=== PATIENT | male | born 1965 | race Caucasian/White ===

== ENCOUNTER 2016-12-22 14:41 | Emergency (ER) | payer MEDICARE, MEDICAID ==
[~2016-12-22] VITALS: Ht 172.7 cm; Wt 123.0 kg
[~2016-12-22 14:41] MED LIST: BACL20TA PO; BISA-72 PO; BUPR150T88 PO; BUPR300T33 PO; CEPH500C2 PO; CLON-241 PO; CYAN10009 PO; DOCU-175 PO; DULO60CA46 PO; FENT50AM; FURO20TA4 PO; IBUP-1724 PO; LEVO75TA10 PO; LORA2TAB81 PO; METO25TA6 PO; OXYC1TAB72 PO; POLY119P3 PO; PRAV40TA46 PO; SENN1TAB79 PO; TAMS0.4C47 PO; [UNRECOGNIZED DRUG - CODE]; [UNRECOGNIZED DRUG - CODE]
[2016-12-22 14:44] VITALS: Ht 172.7 cm; Wt 123.0 kg
--- NOTE | 2016-12-22 14:44 | NUR ---
ROOM PATIENT AMBULATORY TO ROOM
--- OUTSIDE RECORDS SUMMARY | 2016-12-22 14:45 | XMS REPORT | Continuity of Care Document ---
Author Author [facility] Organization [facility] Address Unknown Phone Unavailable Care Team Providers Care Keyboarding Teacher Name Role Phone Unknown, Unknown Primary Care Physician Unavailable Source Comments Some departments are not documenting in the electronic medical record. If you do not see the information that you expected, contact Release of Information in the Health Information Management department at [phone] for further assistance in locating additional records.[facility] Active Allergies and Adverse Reactions Allergen Noted Date Severity Reactions Comments Doxycycline 11/18/2016 Low STOMACH UPSET Erythromycin 11/18/2016 Low STOMACH UPSET Flexeril 11/18/2016 Low ANXIETY Ketorolac 11/18/2016 Low STOMACH UPSET Oxazepam 11/18/2016 Low ANXIETY Seasonal Allergies 11/18/2016 Low ITCHING Ragweed,tree pollen,spring astudillo Current Medications Prescription Sig. Disp. Refills Start End Date Status Date LORazepam (ATIVAN) 2 mg Take 2 mg by mouth every Active tablet 6 hours as needed for Nausea, Vomiting or Other.... baclofen (LIORESAL) 20 mg Take 20 mg by mouth four Active tablet times daily. clonazePAM (KLONOPIN) 0.5 Take 0.5 mg by mouth Active mg tablet twice daily. DULOXETINE HCL (CYMBALTA Take 120 mg by mouth Active PO) daily. furosemide (LASIX) 20 mg Take 20 mg by mouth twice Active tablet daily. Takes 10mg oxyCODONE/acetaminophen Take 1 Tab by mouth every Active (PERCOCET; ENDOCET) 6 hours as needed for 10/325 mg tablet Pain levothyroxine (SYNTHROID) Take 75 mcg by mouth Active 75 mcg tablet daily 30 minutes before breakfast. METOPROLOL TARTRATE PO Take 12.5 mg by mouth Active twice daily. pravastatin (PRAVACHOL) Take 40 mg by mouth at Active 40 mg tablet bedtime daily. BUPROPION HCL (WELLBUTRIN Take 450 mg by mouth Active PO) daily. tamsulosin (FLOMAX) 0.4 Take 0.4 mg by mouth Active mg capsule daily. Do not crush, chew or open capsules. Take 30 minutes following the same meal each day. other medication 1 Dose. Pain Infusion Active pump intrathecal implant cyanocobalamin(+) Take 1,000 mcg by mouth Active (VITAMIN B-12) 100 mcg daily. tablet BISACODYL PO Take 10 mg by mouth Active daily. docusate (COLACE) 100 mg Take 100 mg by mouth Active capsule twice daily. 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
--- OUTSIDE RECORDS SUMMARY | 2016-12-22 14:46 | XMS REPORT | Continuity of Care Document ---
Author Author [facility] Organization [facility] Address Unknown Phone Unavailable Allergies Active Description Code Type Severity Reaction Onset Reported/Identified Relationship to Patient Clinical Status Yes doxycycline NKMA N/A N/A 01/18/2014 Yes erythromycin NKMA N/A N/A 01/18/2014 Yes Ketorolac Tromethamine NKMA N/A N/A 02/19/2014 Yes cyclobenzaprine NKMA N/A [id number] 06/19/2014 Yes oxazepam NKMA N/A [id number] 06/19/2014 Yes Toradol NKMA N/A anxiety 12/06/2014 Medications Problems Procedures Results Test Result Range CBC With Platelet and Differential - 02/21/16 14:40 Absolute Basophils 0.05 10*3 0.00-0.20 Absolute Eosinophils 0.28 10*3 0.00-0.50 Absolute Lymphocytes 2.66 10*3 0.80-3.30 Absolute Monocytes 0.80 10*3 0.30-1.00 Absolute Neutrophils 2.56 10*3 1.90-7.00 Basophils 1 % 0-2 Eosinophils 4 % 0-4 HCT 42.2 % 42.0-52.0 HGB 13.4 g/dL 14.0-18.0 Immature Granulocytes 0.0 % 0.0-1.0 Lymphocytes 42 % 20-46 MCH 31.0 pg 27.0-32.0 MCHC 31.8 g/dL 32.0-36.0 MCV 97.7 fL 82.0-99.0 Monocytes 13 % 4-11 MPV 11.1 fL 8.8-14.8 Neutrophils 40 % 51-75 Platelet Count 214 K/uL 150-400 RBC 4.32 10*6/uL 4.60-6.20 RDW 14.7 % 11.5-14.5 WBC 6.4 K/uL 4.8-10.8 Comprehensive Metabolic Panel (CMP) - 02/21/16 14:40 Albumin 4.5 g/dL 3.5-5.0 Alkaline Phosphatase 71 U/L 40-150 ALT (SGPT) 34 U/L 0-55 Anion Gap 8 NA 3-20 AST (SGOT) 22 U/L 5-34 Bilirubin Total 0.7 mg/dL 0.2-1.2 BUN 17 mg/dL 8-26 Calcium 9.4 mg/dL 8.9-10.5 Chloride 108 mEq/L 99-111 CO2 27 mEq/L 23-31 Creatinine 1.10 mg/dL 0.72-1.25 Globulin 2.1 g/dL 1.8-4.0 Glucose 81 mg/dL 70-99 Potassium 4.1 mEq/L 3.5-5.2 Protein 6.6 g/dL 6.4-8.3 Sodium 143 mEq/L 135-144 eGFR - 02/21/16 14:40 eGFR >60 mL/min >60 Urinalysis with reflex microscopic - 02/21/16 14:53 Appearance Cloudy NA Bilirubin Negative NA Negative Blood Trace NA Negative Color Yellow NA Glucose, Urine Negative Negative Ketones Negative Negative Leukocyte Esterase Negative NA Negative Nitrites Negative NA Negative pH 6.5 NA 5.0-8.0 Protein Pos 2+ Negative Specific Calhoun 1.020 NA 1.003-1.030 UA Collection type Clean Catch NA Urobilinogen 0.2 mg/dL <1.0 Urine Microscopic - 02/21/16 14:53 Bacteria Rare NA Epithelial Cells 0 /HPF RBC, Urine 5 /HPF 0-4 Urine Mucus Present NA WBC, Urine >50 /HPF 0-4 CBC With Platelet No Differential - 03/29/16 06:54 HCT 39.1 % 42.0-52.0 HGB 12.1 g/dL 14.0-18.0 MCH 31.1 pg 27.0-32.0 MCHC 30.9 g/dL 32.0-36.0 MCV 100.5 fL 82.0-99.0 MPV 10.9 fL 9.4-12.3 Platelet Count 176 K/uL 150-400 RBC 3.89 10*6/uL 4.60-6.20 RDW 14.5 % 11.5-14.5 WBC 8.3 K/uL 4.8-10.8 Basic Metabolic Panel (BMP) - 03/29/16 06:54 Anion Gap 6 NA 3-20 BUN 6 mg/dL 4-20 Calcium 8.5 mg/dL 8.6-10.0 Chloride 109 mEq/L 99-109 CO2 26 mEq/L 22-32 Creatinine 0.99 mg/dL 0.64-1.27 Glucose 109 mg/dL 70-100 Potassium 3.5 mEq/L 3.6-5.1 Sodium 141 mEq/L 136-144 eGFR - 03/29/16 06:54 eGFR >60 NA >60 CBC With Platelet No Differential - 03/30/16 06:36 HCT 37.0 % 42.0-52.0 HGB 11.8 g/dL 14.0-18.0 MCH 31.3 pg 27.0-32.0 MCHC 31.9 g/dL 32.0-36.0 MCV 98.1 fL 82.0-99.0 MPV 11.2 fL 9.4-12.3 Platelet Count 237 K/uL 150-400 RBC 3.77 10*6/uL 4.60-6.20 RDW 14.2 % 11.5-14.5 WBC 6.9 K/uL 4.8-10.8 Comprehensive Metabolic Panel (CMP) - 03/30/16 06:36 Albumin 3.2 g/dL 3.5-4.8 Alkaline Phosphatase 51 U/L 26-104 ALT (SGPT) 11 U/L 17-63 Anion Gap 7 NA 3-20 AST (SGOT) 17 U/L 15-41 Bilirubin Total 0.9 mg/dL 0.2-1.2 BUN 11 mg/dL 4-20 Calcium 8.7 mg/dL 8.6-10.0 Chloride 109 mEq/L 99-109 CO2 27 mEq/L 22-32 Creatinine 1.22 mg/dL 0.64-1.27 Globulin 2.9 g/dL 1.9-4.3 Glucose 96 mg/dL 70-100 Potassium 3.6 mEq/L 3.6-5.1 Protein 6.1 g/dL 6.1-7.9 Sodium 143 mEq/L 136-144 eGFR - 03/30/16 06:36 eGFR >60 NA >60 CBC With Platelet No Differential - 03/31/16 05:10 HCT 36.0 % 42.0-52.0 HGB 11.6 g/dL 14.0-18.0 MCH 31.6 pg 27.0-32.0 MCHC 32.2 g/dL 32.0-36.0 MCV 98.1 fL 82.0-99.0 MPV 10.4 fL 9.4-12.3 Platelet Count 200 K/uL 150-400 RBC 3.67 10*6/uL 4.60-6.20 RDW 14.1 % 11.5-14.5 WBC 5.5 K/uL 4.8-10.8 Comprehensive Metabolic Panel (CMP) - 03/31/16 05:10 Albumin 3.0 g/dL 3.5-4.8 Alkaline Phosphatase 49 U/L 26-104 ALT (SGPT) 14 U/L 17-63 Anion Gap 6 NA 3-20 AST (SGOT) 19 U/L 15-41 Bilirubin Total 1.0 mg/dL 0.2-1.2 BUN 13 mg/dL 4-20 Calcium 8.9 mg/dL 8.6-10.0 Chloride 109 mEq/L 99-109 CO2 28 mEq/L 22-32 Creatinine 1.17 mg/dL 0.64-1.27 Globulin 2.6 g/dL 1.9-4.3 Glucose 106 mg/dL 70-100 Potassium 4.1 mEq/L 3.6-5.1 Protein 5.6 g/dL 6.1-7.9 Sodium 143 mEq/L 136-144 eGFR - 03/31/16 05:10 eGFR >60 NA >60 Creatinine - 04/24/16 14:25 Creatinine 1.16 mg/dL 0.72-1.25 eGFR - 04/24/16 14:25 eGFR >60 mL/min >60 PSA - 04/24/16 14:25 PSA 0.7 ng/mL 0.0-3.5 Encounters ACCT No. Visit Date/Time Discharge Status Pt. Type Provider Facility Loc./Unit Complaint [id number] 12/16/2013 20:30:00 12/16/2013 23 :59:59 [facility] Outpatient [id number] 11/29/2013 10:09:00 11/29/2013 23 :59:59 CLS Outpatient
--- OUTSIDE RECORDS SUMMARY | 2016-12-22 14:48 | XMS REPORT | Continuity of Care Document ---
Author Author [facility] Organization [facility] Address Unknown Phone Unavailable Care Team Providers Care It Programmer Name Role Phone TORRES NIÑO DO Primary Care Physician [phone] Insurance Providers Guarantor AllyErwin crandall [employer] Address [address] [place] [address] Email [email or web address] Payer Medicaid Policy Number [id number] Subscriber's Name Erwin Canales Relationship 18 Self Effective Date 16 Expiration Date 16 Payer Medicarehumana Gold Hmo Policy Number [id number] Subscriber's Name Erwin Canales Relationship 18 Self Advance Directives Directive Response Recorded Date/Time Advanced Directives Type None 11/29/16 11:32am Chief Complaint and Reason for Visit Chief Complaint Post-Surgical Problem Reason for Visit Encounter for postoperative wound check Problems Active Problems Medical Problem Onset Date Status Acute kidney injury Unknown Resolved Anxiety Unknown Chronic Chronic back pain Unknown Chronic Depression Unknown Chronic Encounter for postoperative wound check Unknown Acute Essential tremor Unknown Chronic Fibromyalgia Unknown Chronic Hypercholesteremia Unknown Chronic Hyperosmolality and hypernatremia Unknown Resolved Hypokalemia Unknown Acute Leukocytosis Unknown Resolved Obesity, Class III, BMI 40-49.9 (morbid obesity) Unknown Chronic Presence of implanted infusion pump Unknown Chronic Small bowel obstruction Unknown Resolved Past Problems Medical Problem Onset Date Postoperative seroma Unknown Medications Current Home Medications Medication Dose Units Route Directions Days Qty Instructions Start Date Baclofen 20 Mg Tablet 20 Mg Oral Four Times Daily 08/18/15 Bisacodyl (Dulcolax) 5 Mg Tablet. 5-10 Mg Oral Daily for Stool Softening 10/02/16 Bupivacaine Hcl/0.9 % Nacl/Pf (Bupivacaine 0.25%-0.9% Nacl) 2,500 Mcg/1 Ml Plast..bag PAIN INFUSION PUMP 03/17/16 Bupropion Hcl (Wellbutrin Xl) 150 Mg Tab.sr.24h 150 Mg Oral Every Morning 04/14/09 Bupropion Hcl (Wellbutrin Xl) 300 Mg Tab.sr.24h 300 Mg Oral Every Morning 04/14/09 Cephalexin 500 Mg Capsule 500 Mg Oral Four Times Daily 11/23/16 Clonazepam 1 Mg Tablet 0.5 Mg Oral Three Times A Day 04/14/09 Clonidine Hcl/Pf (Clonidine 1,000 Mcg/10 Ml Vial) 1,000 Mcg/10 Ml Vial PAIN INFUSION PUMP 08/18/15 Cyanocobalamin (Vitamin B-12) (Vitamin B-12) 1,000 Mcg Tablet 1,000 Mcg Oral Daily 10/09/15 Docusate Sodium 100 Mg Capsule 1-2 Cap Oral Daily 11/29/16 Duloxetine Hcl (Cymbalta) 60 Mg Capsule.dr 120 Mg Oral Daily 08/07 Fentanyl Citrate/Pf (Fentanyl 1,000 Mcg/20 Ml Ampul) 50 Mcg/1 Ml Ampul PAIN INFUSION PUMP 08/18/15 Furosemide 20 Mg Tablet 10 Mg Oral Twice A Day 10/01/16 Ibuprofen 200 Mg Tablet 400 Mg Oral Every 4 Hours as needed for Pain 11/23/16 Levothyroxine Sodium 75 Mcg Tablet 75 Mcg Oral Before Breakfast 10/09/15 Lorazepam (Ativan) 2 Mg Tablet 2 Mg Oral Three Times A Day as needed for Anxiety 03/17/16 Metoprolol Tartrate 25 Mg Tablet 12.5 Mg Oral Twice A Day Oxycodone Hcl/Acetaminophen (Percocet 10-325 Mg Tablet) 10-325 Tablet 1 Tab Oral Three Times A Day as needed for Pain 11/29/16 Polyethylene Glycol 3350 (Miralax) 119 Gm Powder 17 G Oral Daily 11/23/16 Pravastatin Sodium 40 Mg Tablet 40 Mg Oral Bedtime 04/23/11 Sennosides/Docusate Sodium (Senna S Tablet) 1 Each Tablet 2 Tab Oral Daily as needed for Constipation 03/17/16 Tamsulosin Hcl 0.4 Mg Cap.er.24h 0.4 Mg Oral Bedtime 10/01/16 Past Home Medications Medication Directions Ordered Status Diazepam (Valium) 10 Mg Tablet, 10 Mg Oral Daily 04/14/09 Discontinued Ezetimibe (Zetia) 10 Mg Tablet, 10 Mg Oral Daily 04/14/09 Discontinued Hydrocodone Bit/Acetaminophen (Lortab 10-500 Tablet) 1 Tab Tablet, 1 Tab Oral Four Times Daily 04/14/09 Discontinued Ibuprofen (Motrin) 800 Mg Tablet, 800 Mg Oral Four Times Daily 04/14/09 Discontinued Levothyroxine Sodium (Levoxyl) 150 Mcg Tablet, 75 Mcg Oral Daily 04/14/09 Discontinued Lorazepam 1 Mg Tablet, 1 Mg Oral Daily 04/14/09 Discontinued Sertraline Hcl (Zoloft) 50 Mg Tablet, 50 Mg Oral Twice A Day 04/14/09 Discontinued Social History Social History Problem Response Recorded Date/Time Onset Date Status Chewing Tobacco Status No 11/29/2016 11:45am Not Applicable Not Applicable Hx Substance Use No 11/29/2016 11:45am Not Applicable Not Applicable Hx Alcohol Use No 11/29/2016 11:45am Not Applicable Not Applicable Has the pt used tobacco in the last 12 months No 11/19/2016 12:28pm Not Applicable Not Applicable Tobacco Usage none 08/18/2015 12:07pm Not Applicable Not Applicable Query Response Start Date Stop Date Smoking Status Never smoker Hospital Discharge Instructions No hospital discharge instructions. Plan of Care Discharge Date 11/29/16 12:30pm Disposition 01 DISCHARGED HOME, SELF-CARE Condition at Discharge Stable Instructions/Education Provided Acute Wound Care (ED) Prescriptions See Medication Section Referrals TORRES NIÑO DO Address: [address] [place] [address] YUMI COLBERT [phone] Note: GENEVA COATES MD, FACS, CWS Address: [address] [place] [address] [place] [phone] Additional Instructions/Education You abdominal wound is healing normally.l Continue care Dr. Coates instructed you to do. If you still have concerns follow with Dr. Coates early next week. Follow treatment plan. Care Plan and Goals Physician Care Plan Problem: Operative wound check Goal: Follow up with Dr. Coates as needed early next week Instructions: Take medications and follow care plan as discussed/written Functional Status No functional status results. Allergies, Adverse Reactions, Alerts Allergen Type Severity Reaction Status Last Updated cyclobenzaprine HCl Adverse Reaction Unknown EXTREME ANXIETY,HYPER Active 11/29/16 ketorolac tromethamine Allergy Unknown STOMATITIS Active 11/29/16 Oxazepam Adverse Reaction Unknown EXTREME ANXIETY,HYPER Active 11/29/16 Doxycycline Allergy Unknown STOMATITIS Active 11/29/16 Erythromycin base Allergy Unknown STOMATITUS Active 11/29/16 ragweed pollen Allergy Unknown Active 11/29/16 SPRING FLOWERING WEEDS Allergy Unknown Active 08/18/15 TREE POLLEN Allergy Unknown Active 08/18/15 Immunizations Query Response on File Recorded Date/Time Hx Influenza Vaccination Yes 11/19/16 12:28pm Hx Pneumococcal Vaccination Y 2013 (23) 11/19/16 12:28pm Hx Influenza Vaccination Yes 11/19/16 12:28pm Influenza Vaccine Hx 09/05/2016 11/29/16 11:45am Vital Signs Acute Vital Signs Vital Response Date/Time Temperature (Fahrenheit) 97.2 deg F (96.8 - 99.1) 11/29/2016 12:30pm Temperature (Calculated Celsius) 36.72998 degrees C (36.0 - 37.3) 11/29/2016 12:30pm Temperature Source Oral 11/20/2016 1:33pm Pulse Rate (adult) 78 bpm (60 - 100) 11/29/2016 12:30pm Respiratory Rate 18 breaths/min (10 - 20) 11/29/2016 12:30pm O2 Sat by Pulse Oximetry 97 % (90 - 100) 11/29/2016 12:30pm Oxygen Delivery Method Room Air 11/20/2016 6:00pm Blood Pressure 128/68 mm Hg 11/29/2016 12:30pm Blood Pressure Source Automatic Cuff 11/20/2016 6:00pm Height (Feet) 5 feet 11/29/2016 11:32am Height (Inches) 8.00 inches 11/29/2016 11:32am Weight (Kilograms) 128.700 kg 11/29/2016 11:32am Body Mass Index (BMI) 43.0 11/29/2016 11:32am Results Laboratory Results Test Name Result Units Flags Reference Collection Date/Time Result Date/ Time Comments Prothromb Time International Ratio 1.16 H 0.76-1.04 10/02/2016 8:43am 10/02/2016 9:28am THERAPUTIC RANGE=2.00-3.00 FOR ANTI-THROMBOSIS THERAPUTIC RANGE=2.50-3.50 FOR IMPLANTED VALVE White Blood Count 6.3 T/MM3 4.5-11.0 11/20/2016 10:36am 11/20/2016 11: 50am Red Blood Count 4.35 M/MM3 L 4.50-5.90 11/20/2016 10:36am 11/20/2016 11: 50am Hemoglobin 13.3 GM/DL L 13.5-17.5 11/20/2016 10:36am 11/20/2016 11:50am Hematocrit 41.4 % 41-53 11/20/2016 10:36am 11/20/2016 11:50am Mean Corpuscular Volume 95.2 UM3 80-100 11/20/2016 10:36am 11/20/2016 11:50am Mean Corpuscular Hemoglobin 30.6 UUG 26-34 11/20/2016 10:36am 2016 11:50am Mean Corpuscular Hemoglobin Concent 32.1 GM/DL 31-37 11/20/2016 10:36am 11/20/2016 11:50am RDW Standard Deviation 47.9 FL 36.9-50.2 11/20/2016 10:36am 11/20/2016 11:50am Platelet Count 220 T/MM3 130-400 11/20/2016 10:36am 11/20/2016 11:50am Mean Platelet Volume 10.8 UM3 9.4-12.4 11/20/2016 10:36am 11/20/2016 11 :50am Neutrophils (%) (Auto) 60.7 % 33-66 11/20/2016 10:36am 11/20/2016 11: 50am Lymphocytes (%) (Auto) 25.1 % 23-45 11/20/2016 10:36am 11/20/2016 11: 50am Monocytes (%) (Auto) 10.5 % H 0-9.0 11/20/2016 10:36am 11/20/2016 11: 50am Eosinophils (%) (Auto) 3.0 % 0-4 11/20/2016 10:36am 11/20/2016 11:50am Basophils (%) (Auto) 0.5 % 0-2 11/20/2016 10:36am 11/20/2016 11:50am Immature Granulocyte % (Auto) 0.2 % 0.0-0.5 11/20/2016 10:36am 2016 11:50am Absolute Neutrophils (auto) 3.8 T/MM3 1.8-7.7 11/20/2016 10:36am 2016 11:50am Absolute Lymphocytes (auto) 1.6 T/MM3 1-4.8 11/20/2016 10:36am 2016 11:50am Absolute Monocytes (auto) 0.7 T/MM3 0-0.8 11/20/2016 10:36am 2016 11:50am Absolute Eosinophils (auto) 0.2 T/MM3 0-0.5 11/20/2016 10:36am 2016 11:50am Absolute Basophils (auto) 0.0 T/MM3 0-0.2 11/20/2016 10:36am 2016 11:50am Absolute Immature Granulocyte (auto 0.01 T/MM3 0.00-0.03 11/20/2016 10: 36am 11/20/2016 11:50am Icterus Index < 2 0-7 11/20/2016 10:36am 11/20/2016 11:55am Chemistry Specimen Hemolysis < 15 0-25 11/20/2016 10:36am 11/20/2016 11:55am 0-25: Specimen Exhibited No Hemolysis. Turbidity < 20 0-20 11/20/2016 10:36am 11/20/2016 11:55am Sodium Level 145 MEQ/L H 134-144 11/20/2016 10:36am 11/20/2016 11:55am Potassium Level 3.4 MEQ/L L 3.6-5 11/20/2016 10:36am 11/20/2016 11:55am Chloride Level 107 MEQ/L 98-107 11/20/2016 10:36am 11/20/2016 11:55am Carbon Dioxide Level 27 MEQ/L 22-30 11/20/2016 10:36am 11/20/2016 11: 55am Anion Gap 11 MEQ/L 5-15 11/20/2016 10:36am 11/20/2016 11:55am Blood Urea Nitrogen 16.0 MG/DL 9-20 11/20/2016 10:36am 11/20/2016 11: 55am Creatinine 1.3 MG/DL 0.8-1.5 11/20/2016 10:36am 11/20/2016 11:55am BUN/Creatinine Ratio 12 RATIO 6-26 11/20/2016 10:36am 11/20/2016 11: 55am Glomerular Filtration Rate Calc 58 11/20/2016 10:36am 11/20/2016 11 :55am Glucose Level 93 MG/DL 75-110 11/20/2016 10:36am 11/20/2016 11:55am Calculated Osmolality 280 MOSM/KG 261-280 11/20/2016 10:36am 2016 11:55am Calcium Level 9.5 MG/DL 8.4-10.2 11/20/2016 10:36am 11/20/2016 11:55am Procedures Procedure Status Date Provider(s) Routine venipuncture Completed 10/02/16 Myelography lumbar injection Completed 10/02/16 Ct neck spine w/dye Completed 10/02/16 Automated platelet count Completed 10/02/16 Prothrombin time Completed 10/02/16"LOW OSMOLAR CONTRAST MATERIAL, 300-399 MG/ML IODINE C Completed X-ray exam l-2 spine 4/>vws Completed 10/07/16 Routine venipuncture Completed 11/20/16 Prp i/reynold init reduc >5 yr Completed 11/20/16 GENEVA COATES MD, FACS, CWS Metabolic panel total ca Completed 11/20/16 Complete cbc w/auto diff wbc Completed 11/20/16 [id number] ITEM OR SERVICE Completed 11/20/16 [id number] ITEM OR SERVICE Completed 11/20/16996467"INJECTION, CEFAZOLIN SODIUM, 500 MG" Completed 11/20/16"INJECTION, DEXAMETHASONE SODIUM PHOSPHATE, 1MG" Completed 11/20/16"INJECTION, HYDROMORPHONE, UP TO 4 MG" Completed 11/20/16"INJECTION, HYDROMORPHONE, UP TO 4 MG" Completed 11/20/16"INJECTION, MIDAZOLAM HYDROCHLORIDE, PER 1 MG" Completed 11/20/16"INJECTION, MIDAZOLAM HYDROCHLORIDE, PER 1 MG" Completed 11/20/16"INJECTION, ONDANSETRON HYDROCHLORIDE, PER 1 MG" Completed 11/20/16 PROPOFOL INJ 500 MG/50ML Completed 11/20/16 PROPOFOL INJ 500 MG/50ML Completed 11/20/[id number]"INJECTION, METOCLOPRAMIDE HCL, UP TO 10 MG" Completed 11/20/16"INJECTION, FENTANYL CITRATE, 0.1 MG" Completed 11/20/16"INJECTION, FENTANYL CITRATE, 0.1 MG" Completed 11/20/16"RINGERS LACTATE INFUSION, UP TO 1000 CC" Completed 11/20/16"RINGERS LACTATE INFUSION, UP TO 1000 CC" Completed 11/20/16 Ct abd & pelv w/contrast Completed 11/23/16 Emergency dept visit Completed 11/23/16"INFUSION, NORMAL SALINE SOLUTION , 250 CC" Completed 11/23/16"LOW OSMOLAR CONTRAST MATERIAL, 300-399 MG/ML IODINE C Completed Encounters Encounter Location Arrival/Admit Date Discharge/Depart Date Attending Provider Registered Emergency Room [facility] 11/29/16 11:30am CHANI MADERA DO Departed Emergency Room [facility] 11/23/16 5:46pm 11/23/16 7: 55pm ANJALI LOVING MD Departed [facility] 11/20/16 10:05am 11/20/16 6 :02pm GENEVA COATES FACS, MD Registered Clinic [facility] 10/07/16 2:55pm GENEVA BURNS Departed [facility] 10/02/16 8:04am 10/02/16 2:55pm LOLA NELSON MD Recent Diagnosis
--- NOTE | 2016-12-22 15:03 | ERPDOC ---
Departure Disposition Decision Date: Dec 22, 2016 Disposition Decision Time: 16:24 Disposition: 01 DISCHARGED HOME, SELF-CARE Impression Impression Impression: Primary Impression: External bleeding hemorrhoids Severity: Mild Condition: Against Medical Advice Seen By: Physician only Referrals: TORRES NIÑO DO (PCP) 1 Day GENEVA COATES MD, FACS, CWS Call for appointment Patient Instructions: Hemorrhoids (ED) Problems/Meds/Labs Reviewed?: Yes Medications reviewed and manag: Yes Follow up care ordered?: Yes Mental Status: Alert, Oriented Scripts Hydrocortisone (Anusol-Hc) 30 Gm Cream..g. 1 APPLIC TOP BID, #30 GM Prov: YANG ORTEGA DO 12/22/16 HPI - General Medical General Chief Complaint: General Stated Complaint: RECTAL BLEEDING Time Seen by Provider: 14:43 Source: patient (Patient presents to the ER with rectal bleeding. Apparently the patient developed hemorrhoidal bleeding after a bowel movement. ) Exam Limitations: no limitations HPI - General Medical Occurred At: home Onset: Changing over time Duration: 1-3 hrs Pain Scale: Now & Worst: 0/10 Severity: mild Modifying Factors: IMPROVES WITH: other Associated Symptoms: denies symptoms Hx of Similar Symptoms: Yes Allergies: Coded Allergies: doxycycline (Verified Allergy, Unknown, STOMATITIS, 12/22/16) erythromycin base (Verified Allergy, Unknown, STOMATITUS, 12/22/16) ketorolac tromethamine (Verified Allergy, Unknown, STOMATITIS, 12/22/16) ragweed pollen (Verified Allergy, Unknown, 12/22/16) cyclobenzaprine HCl (Verified Adverse Reaction, Unknown, EXTREME ANXIETY, HYPER, 12/22/16) oxazepam (Verified Adverse Reaction, Unknown, EXTREME ANXIETY,HYPER, ) Uncoded Allergies: SPRING FLOWERING WEEDS (Allergy, Unknown, 08/18/15) TREE POLLEN (Allergy, Unknown, 08/18/15) Past History Patient Surgical History Tonsillectomy Liver lesion removed at age 3 Multiple back surgeries with implanted pain pump Past Medical History Metabolic: hypercholesterolemia Male: BPH Neurological: fibromyalgia Musculoskeletal: back pain, neck pain Psychological: anxiety, depression Surgical History General: back, hernia, other Family History Family PMH: FOUND: other Vaccines Hx Influenza Vaccination: Yes Hx Pneumococcal Vaccination: Yes (2013)) Social History Does patient use chewing tobac: No Second Hand Exposure: No Substance Use Type: does not use Alcohol Intake: none Marital Status: Sexuality: female partner Housing: house Household Members: significant other Service: No Occupational Hazard: No Advance Directives: Yes Full Code Record Review Pertinent history updated: Yes Review of Systems Constitutional Constitutional: DENIES: chills, fever Eyes Lids/Accessories: DENIES: erythema, swelling ENMT Ears: DENIES: erythema, pain Balance: DENIES: ataxia, vertigo Sinuses: DENIES: congestion, rhinorrhea Mouth/Throat: DENIES: sore throat Cardiovascular Cardiac: DENIES: chest pain, dyspnea on exertion, orthopnea Rhythm/Rate: DENIES: tachycardia Pulmonary Respiratory: DENIES: cough, dyspnea, sputum GI Upper Abdomen: DENIES: nausea, pain, vomiting Lower Abdomen: blood in stool, other, see HPI, DENIES: constipation, diarrhea, pain General: DENIES: dysuria Musculoskeletal General: DENIES: cramps, pain, weakness Integumentary Skin: DENIES: color change, itching, rash Neurological General: DENIES: ataxia, change in strength, headache, numbness, poor coordination, seizures, syncope, vertigo, weakness Psychiatric Psychiatric: DENIES: anxiety, depression, nervousness Hematologic/Lymphatic Hematologic/Lymphatic: DENIES: anemia Allergic/Immunological Allergic/Immunoligical: DENIES: sneezing All other Systems All Other Systems: Reviewed and Negative Physical Exam General General Nourishment: well nourished, well developed, appears stated age, no acute distress, adult General Body Habitus: well groomed Vitals and Pain First Documented Vital Signs Date Time Temp Pulse Resp B/P Pulse Ox O2 Delivery O2 Flow Rate FiO2 12/22/16 14:44 98.4 84 16 172/79 97 Room Air Weight: Kilograms: Height (feet): 5 Height (inches): 8.00 Triage Pain Scale: RN VS reviewed by Provider: Yes Eyes (brief) Eyes Brief: found: EOMI, PERRL ENMT (brief) ENMT Brief: FOUND: mucosa moist Neck (brief) Neck: FOUND: trachea midline, NOT FOUND: adenopathy, tenderness, tracheal deviation Respiratory (brief) Respiratory: FOUND: clear all mckeon, equal bilaterally Cardiovascular (brief) Cardiac: FOUND: regular rate, regular rhythm Capillary Refill: <2 sec Pulses: all distal extremities, equal, strong Abdomen Inspection: NOT FOUND: distention Palpation: FOUND: soft, NOT FOUND: Maxwell's sign, Obturator sign, Psoas sign, involuntary guarding, rebound, tender, voluntary guarding Auscultation: FOUND: normoactive Rectal: FOUND: external hemorrhoids (Small clot removed, hemorrhoid has formed , no active bleeding is noted. ), gross blood, sphincter normal tone, thrombosed hemorrhoids Lymphatic (brief) Lymphatic Brief: NOT FOUND: adenopathy Musculoskeletal (brief) Musculoskeletal Brief: NOT FOUND: spasm, tenderness Integumentary (brief) Integumentary Brief: FOUND: pink, warm Neurologic (brief) Neurological Brief: FOUND: CN w/o gross def to obs, gait w/o gross def to obs, motor-no gross deficits, sensory-no gross deficits, NOT FOUND: ataxia Psychiatric (brief) Psychiatric Brief: FOUND: alert, attentive, normal affect, oriented Differential Diagnoses Considering: Other Progress Results/Orders Orders Procedure Category Date Status Time Cbc W/Auto LAB 12/22/16 Complete Diff-Reflex Manual Lab Results Laboratory Tests Test 12/22/16 15:16 White Blood Count 5.7T/MM3 Red Blood Count 4.12M/MM3 Hemoglobin 12.6GM/DL Hematocrit 39.7% Mean Corpuscular Volume 96.4UM3 Mean Corpuscular Hemoglobin 30.6UUG Mean Corpuscular Hemoglobin Concent 31.7GM/DL RDW Standard Deviation 48.5FL Platelet Count 211T/MM3 Mean Platelet Volume 9.9UM3 Immature Granulocyte % (Auto) 0.2% Neutrophils (%) (Auto) 61.0% Lymphocytes (%) (Auto) 24.8% Monocytes (%) (Auto) 8.3% Eosinophils (%) (Auto) 4.8% Basophils (%) (Auto) 0.9% Absolute Immature Granulocyte (auto 0.01T/MM3 Absolute Neutrophils (auto) 3.5T/MM3 Absolute Lymphocytes (auto) 1.4T/MM3 Absolute Monocytes (auto) 0.5T/MM3 Absolute Eosinophils (auto) 0.3T/MM3 Absolute Basophils (auto) 0.1T/MM3 Consult/PCP Consult/PCP : Physician Contacted: Dr. Coates Time Called: 16:10 Time of first response: 16:17 Type of discussion: Phone Consult/PCP Discussion Details Nothing Further to be done Will follow in the office as needed YANG ORTEGA DO Dec 22, 2016 15:03
[2016-12-22] MEDS ORDERED: TOPI50TA57 PO (15:06)
[2016-12-22 15:25] LABS: BASOPHILS # (AUTO) 0.1 T/MM3 (0-0.2); BASOPHILS % (AUTO) 0.9 % (0-2); EOSINOPHILS # (AUTO) 0.3 T/MM3 (0-0.5); EOSINOPHILS % (AUTO) 4.8 % (0-4); HCT - HEMATOCRIT 39.7 % (41-53); HGB - HEMOGLOBIN 12.6 GM/DL (13.5-17.5); IMMATURE GRANULOCYTE # (AUTO) 0.01 T/MM3 (0.00-0.03); IMMATURE GRANULOCYTE % (AUTO) 0.2 % (0.0-0.5); LYMPHOCYTES # (AUTO) 1.4 T/MM3 (1-4.8); LYMPHOCYTES % (AUTO) 24.8 % (23-45); MEAN CORPUSCULAR HGB 30.6 UUG (26-34); MEAN CORPUSCULAR HGB CONC(MCHC 31.7 GM/DL (31-37); MEAN CORPUSCULAR VOLUME 96.4 UM3 (80-100); MEAN PLATELET VOLUME 9.9 UM3 (9.4-12.4); MONOCYTES # (AUTO) 0.5 T/MM3 (0-0.8); MONOCYTES % (AUTO) 8.3 % (0-9.0); NEUTROPHILS #(AUTO)-ABSOLUTE 3.5 T/MM3 (1.8-7.7); RED BLOOD COUNT 4.12 M/MM3 (4.50-5.90); WBC - WHITE BLOOD COUNT 5.7 T/MM3 (4.5-11.0)
--- OUTSIDE RECORDS SUMMARY | 2016-12-22 15:40 | XMS REPORT | Continuity of Care Document ---
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 If you do not see the information that you expected, contact Release of Information in the Health Information Management department at [phone] for further assistance in locating additional records.[facility] Active Allergies and Adverse Reactions Allergen [...] Taken Blood Pressure 105/69 11/18/2016 12:51 PM RESERVATIONS AGENT Pulse 65 11/18/2016 12:51 PM RESERVATIONS AGENT Temperature - - Respiratory Rate - - Height 1.727 m (5' 8") 11/18/2016 12:51 PM RESERVATIONS AGENT Weight 125.102 kg (275 lb 12.8 11/18/2016 12:51 PM RESERVATIONS AGENT oz) Body Mass Index 41.94 11/18/2016 12:51 PM RESERVATIONS AGENT Oxygen Saturation - - Plan of Care Health Maintenance Due Date Last Done Comments Hepatitis C Screening 1965 Physical (Comprehensive) 01/11/1972 Exam Pertussis Vaccine 01/11/1976 Tetanus Vaccine 1982 Colorectal Cancer 2015 Screening Influenza Vaccine 05/22/2017 Results from Last 3 Months Not on file
--- OUTSIDE RECORDS SUMMARY | 2016-12-22 15:40 | XMS REPORT | Continuity of Care Document ---
Author Author [facility] Organization [facility] Address Unknown Phone Unavailable Allergies Active Description Code Type Severity Reaction Onset Reported/Identified Relationship to Patient Clinical Status Yes doxycycline NKMA N/A N/A 01/18/2014 Yes erythromycin NKMA N/A N/A 01/18/2014 Yes Ketorolac Tromethamine NKMA N/A N/A 02/19/2014 Yes cyclobenzaprine NKMA N/A [id number] 06/19/2014 Yes oxazepam NKMA N/A [id number] 06/19/2014 Yes Toradol NKMA N/A anxiety 12/06/2014 [...] NA 5.0-8.0 Protein Pos 2+ Negative Specific [place] 1.020 NA 1.003-1.030 UA Collection type Clean [...] Status Pt. Type Provider Facility Loc./Unit Complaint [id number] 12/16/2013 20:30:00 12/16/2013 23 :59:59 [facility] Outpatient [id number] 11/29/2013 10:09:00 11/29/2013 23 :59:59 CLS Outpatient
--- NOTE | 2016-12-22 15:45 | NUR ---
STATUS RESTS COMFORTABLY. NO COMPLAINTS
[2016-12-22] MEDS ORDERED: HYDR30CR79 TOP (16:39)
[2016-12-22 16:51] VITALS: BP 143/63; PULSE 64; RESP 16; TEMP 98.4; O2SAT 96
--- NOTE | 2016-12-22 16:51 | NUR ---
DEPART VERBAL AND WRITTEN DISCHARGE INSTRUCTIONS GIVEN AND UNDERSTOOD. CONDITION STABLE. RELEASED AMBULATORY FROM ER
== END 2016-12-22 16:51 | disposition home or self-care (01) ==
LOC: ED 15:35
DX: K64.4 Residual hemorrhoidal skin tags (principal)
CPT/HCPCS: 36415; 85025